=== PATIENT | female | born 1950 | race Caucasian/White ===

== ENCOUNTER 2017-05-20 18:28 | Emergency (ER) | payer MEDICARE, OTHER ==
[~2017-05-20] VITALS: Ht 165.1 cm; Wt 57.6 kg
[~2017-05-20 18:28] MED LIST: LACTPOW XX; PRIL10CA PO; VENL25TA14 PO
[2017-05-20 18:35] VITALS: BP 145/73; PULSE 82; RESP 18; TEMP 98.5; O2SAT 96
[2017-05-20] MEDS ORDERED: VENL75TA PO (18:41)
[2017-05-20] MEDS ORDERED: AMIT10TA6 PO (18:41)
[2017-05-20] MEDS ORDERED: CBD OIL (18:41)
[2017-05-20] MEDS ORDERED: OMEP2.5S (18:41)
[2017-05-20] MEDS ORDERED: VITA1000 PO (18:41)
[2017-05-20] MEDS ORDERED: BACT400T PO (18:41)
[2017-05-20] MEDS ORDERED: URIB118C (18:41)
[2017-05-20] MEDS ORDERED: LACTCAP8 PO (18:41)
[2017-05-20] MEDS ORDERED: AMOX500T PO (19:14)
[2017-05-20] MEDS ORDERED: DIFL150T PO (19:14)
[2017-05-20] MEDS ORDERED: AMOXICILLIN (TRIHYDRATE) 500 MG CAP PO ONE (19:15)
--- NOTE | 2017-05-20 19:15 | PD ---
HPI Chief Complaint: ENT Complaint Time Seen by Provider: 19:10 Travel History International Travel<30 days: No Contact w/Intl Traveler<30days: No Traveled to known affect area: No History of Present Illness HPI 66 year old female with right ear pain x 1 day. She denies fever or chills. She reports previous ear infections in the past similar symptoms. Symptom severity is moderate. No alleviating factors. PFSH Past Medical History Autoimmune Disease: Yes (SLE) Diminished Hearing: No Fibromyalgia: Yes Gastrointestinal Disorders: Yes (IBS) GERD: Yes Genitourinary: Yes (INTERSTITIAL CYSTITIS) Immunizations Current: Yes Influenza Vaccination: Yes ?: Not Menopausal: Yes : 3 Para: 3 Miscarriage: 0 Past Surgical History Appendectomy: Yes Section: Yes (X1) Social History Alcohol Use: Yes ("RARELY") Tobacco Use: No Substance Use: No Allergies-Medications (Allergen,Severity, Reaction): Coded Allergies: ciprofloxacin (Unverified Allergy, Severe, Rash, 05/20/17) hydroxychloroquine (Verified Allergy, Severe, ABN LIVER FUNCTION, 05/20/17) meperidine (Verified Allergy, Severe, SEIZURES, 05/20/17) prochlorperazine (Unverified Allergy, Severe, Seizures, 05/20/17) aspirin (Unverified Adverse Reaction, Severe, STOMACH PAIN, 05/20/17) tramadol (Unverified Adverse Reaction, Severe, Nausea/Vomiting, 05/20/17) doxycycline (Unverified Adverse Reaction, Unknown, Rash, 05/20/17) ALSO VOMITING minocycline (Unverified Adverse Reaction, Unknown, Rash, 05/20/17) ALSO VOMITING tigecycline (Unverified Adverse Reaction, Unknown, Rash, 05/20/17) ALSO VOMITING Reported Meds & Prescriptions Reported Meds & Active Scripts Active Diflucan (Fluconazole) 150 Mg Tab 150 Mg PO ONCE Amoxicillin 500 Mg Tab 500 Mg PO TID 10 Days Reported [Cbd Oil] Uribel (Drcgptxvusj-Zmqby-Yuegkddge Blue) 1 Cap Unknown Dose Amitriptyline (Amitriptyline HCl) 10 Mg Tab Unknown Dose PO HS Bactrim (Sulfamethoxazole-Trimethoprim) 400-80 Mg Tab Unknown Dose PO BID PRN Vitamin D-1000 (Cholecalciferol) 1,000 Unit Tab 2,000 Units PO DAILY Effexor (Venlafaxine HCl) 75 Mg Tab 75 Mg PO DAILY Prilosec (Omeprazole Magnesium) 2.5 Mg Pow Unknown Dose Probiotic (Lactobacillus Acidophilus) 10 Billion Cell Cap Unknown Dose PO TIDAC Review of Systems Except as stated in HPI: all other systems reviewed are Neg General / Constitutional: No: Fever Physical Exam Narrative GENERAL: Alert well-appearing female in no distress SKIN: Warm and dry. HEAD: Normocephalic. EYES: No scleral icterus. No injection or drainage. EARS: Right TM erythema, bulging, loss of landmarks. No referred patient. No mastoid tenderness. NECK: Supple, trachea midline. No JVD or lymphadenopathy. CARDIOVASCULAR: Regular rate and rhythm without murmurs, gallops, or rubs. RESPIRATORY: Breath sounds equal bilaterally. No accessory muscle use. Data Data Last Documented VS Vital Signs Date Time Temp Pulse Resp B/P (MAP) Pulse Ox O2 Delivery O2 Flow Rate FiO2 05/20/17 18:35 98.5 82 18 145/73 (97) 96 Orders Orders Amoxicillin (Trimox) (05/20/17 19:15) Ed Discharge Order (05/20/17 19:16) MDM Medical Decision Making Medical Screen Exam Complete: Yes Emergency Medical Condition: Yes Differential Diagnosis AOM, otitis externa, URI Narrative Course 66 year old female with right ear pain x 1 day. She has TM erythema, bulging, loss of landmarks. She will be treated for AOM. She is requesting Diflucan for yeast infection treatment after she completes the antibiotics. Diagnosis Primary Impression: Otitis media Qualified Codes: H66.90 - Otitis media, unspecified, unspecified ear Referrals: Primary Care Physician Additional Instructions: take over the counter tylenol or ibuprofen as needed for pain Scripts Fluconazole (Diflucan) 150 Mg Tab 150 MG PO ONCE for Infection, #1 TAB 0 Refills Prov: Zoey Yadav 05/20/17 Amoxicillin (Amoxicillin) 500 Mg Tab 500 MG PO TID for Infection for 10 Days, TAB 0 Refills Prov: Zoey Yadav 05/20/17 Disposition: 01 DISCHARGE HOME Condition: Stable Zoey Yadav May 20, 2017 19:15
== END 2017-05-20 19:21 | disposition home or self-care (01) ==
LOC: PHEFT 18:28
DX: H66.91 Otitis media, unspecified, right ear (principal)
CPT/HCPCS: 99284